=== PATIENT | female | born 2000 | race African-American/Black ===

== ENCOUNTER 2022-01-30 00:44 | Inpatient (IN) | payer SELFPAY ==
[~2022-01-30] VITALS: Ht 154.9 cm; Wt 57.6 kg
[2022-01-31] VITALS (63 sets, daily range): BP systolic 91–125; BP diastolic 52–78
[2022-01-31 02:56] LABS: HEMATOCRIT 35.6 % (36.0-47.0); HEMOGLOBIN 12.4 g/dl (12.0-15.5); MEAN CORPUSCULAR HEMOGLOBIN 30.2 pg (27.0-33.0); MEAN CORPUSCULAR HGB CONC 34.8 g/dl (32.0-36.5); MEAN CORPUSCULAR VOLUME 86.8 fl (80.0-96.0); PLATELET COUNT, AUTOMATED 137 10^3/uL (150-450); WHITE BLOOD COUNT 11.9 10^3/uL (4.0-10.0)
[2022-01-31 03:17] LABS: GC DNA AMPLIFICATION NEGATIVE (NEGATIVE)
[2022-01-31 04:25] LABS: HEPATITIS B SURFACE ANTIGEN NEGATIVE (NEGATIVE)
[2022-01-31] MEDS ORDERED: ePHEDrine SULFATE 25 MG/5 ML(5MG/ML) SYRINGE IVP PRN (04:55)
[2022-01-31] MEDS ORDERED: LR 500 ML IV PRN (04:55)
[2022-01-31] MEDS ORDERED: EPIDURAL/PCA KEYS XX PRN (04:55)
[2022-01-31] MEDS: FENTANYL/ROPIVACAINE/NACL BAG 100 ML EPIDURAL SCH ×2 (04:55→11:12)
[2022-01-31] MEDS ORDERED: ONDANSETRON 4MG 2ML VIAL IV PRN ×3 (04:55→23:20)
[2022-01-31] MEDS ORDERED: NALOXONE INJ 0.4MG/1ML VIAL (J2310 PER 1MG) IV PRN ×3 (04:55→23:20)
[2022-01-31] MEDS ORDERED: diphenhydrAMINE 50MG/ML VIAL (J1200) IV PRN ×2 (04:55→23:20)
[2022-01-31] MEDS ORDERED: FENTANYL 2MCG/ML ROPIVACAINE 0.2% IN 0.9% NACL 100ML IVBAG As Ordered ONE (04:56)
[2022-01-31] MEDS: LR 1,000 ML IV SCH ×5 (05:18→16:32)
[2022-01-31] MEDS ORDERED: OXYTOCIN DRIP 30 UNITS in IV 1 EA IV SCH (05:40)
[2022-01-31] MEDS: PENICILLIN G POTASSIUM IV 2.5 MU in IV 1 EA IV SCH ×4 (05:49→19:29)
[2022-01-31] MEDS ORDERED: BUTORPHANOL 2 MG/ML INJ (J0595) IV ONE (07:50)
[2022-01-31] MEDS ORDERED: PROMETHAZINE 25MG/ML 1ML VIAL IV ONE (07:50)
[2022-01-31] MEDS ORDERED: BETAMETHASONE SOLUSPAN 6MG/ML 5ML VIAL (J0702 PER 3MG) IM ONE (10:30)
[2022-01-31] MEDS ORDERED: PRENTAB9 PO (16:00)
[2022-01-31] MEDS ORDERED: LACTATED RINGER'S 1000 ML IV STA (20:12)
[2022-01-31] MEDS ORDERED: BICITRA 30ML SOLN UDC PO ONE (20:15)
[2022-01-31] MEDS ORDERED: TRANEXAMIC ACID INJection 1,000 MG in NS 100 ML IV PRN (20:15)
[2022-01-31] MEDS ORDERED: ceFAZolin 2 GM/D5W 50 ML IV BAG (J0690 PER 500MG) As Ordered ONE (20:15)
[2022-01-31] MEDS ORDERED: OXYTOCIN DRIP 30 UNITS in IV 1 EA IV PRN ×4 (20:15)
[2022-01-31] MEDS ORDERED: CARBOPROST TROMETHAMINE 250 MCG/ML AMP IM PRN (20:15)
[2022-01-31] MEDS ORDERED: ceFAZolin SOD 2 GM in IV 1 EA IV ONE (20:15)
[2022-01-31] MEDS ORDERED: METHYLERGONOVINE MALEATE 0.2 MG/ML VIAL (J2210) IM PRN (20:15)
[2022-01-31] MEDS ORDERED: AZITHROMYCIN INJ 500 MG, VIAL MATE ADAPTER 1 EACH in NS 250 ML IV ONE (20:15)
[2022-01-31] MEDS ORDERED: AZITHROMYCIN INJ 500MG VIAL As Ordered ONE (20:16)
[2022-01-31] MEDS ORDERED: MORPHINE PRES-FREE INJ 10 MG/10 ML VIAL As Ordered ONE (20:17)
[2022-01-31] MEDS ORDERED: ONDANSETRON 4MG 2ML VIAL As Ordered ONE (20:21)
[2022-01-31] MEDS ORDERED: dexameTHASONE 4 MG/ML 1ML VIAL (J1100 PER 1MG) As Ordered ONE (20:21)
[2022-01-31] MEDS ORDERED: LIDOCAINE 2% W/EPINEPHRINE 20ML VIAL **PRES FREE As Ordered ONE (20:21)
[2022-01-31] MEDS ORDERED: OXYTOCIN INJ 10 UNITS/ML VIAL (J2590) As Ordered ONE (20:22)
[2022-01-31] MEDS ORDERED: OXYTOCIN 30 UNITS IN 0.9% NaCl 500ML IV BAG (J2590) As Ordered ONE (20:22)
[2022-01-31] MEDS ORDERED: LIDOCAINE 1% MDV 50ML VIAL As Ordered ONE (20:56)
[2022-01-31] MEDS ORDERED: MIDAZOLAM INJ 2MG/2ML VIAL (J2250 PER 1MG) As Ordered ONE (20:59)
[2022-01-31] MEDS ORDERED: KETOROLAC 60MG 2ML VIAL As Ordered ONE (21:20)
[2022-01-31] MEDS ORDERED: PHENYLephrine 500MCG 5ML (100MCG/ML) SYRINGE As Ordered ONE (21:24)
[2022-01-31] MEDS ORDERED: LIDOCAINE 1% MDV 50ML VIAL SC ONE (21:30)
[2022-01-31] MEDS ORDERED: RHOGAM 300 MCG (1500 IU) INJ (J2790) IM SCH (21:50)
[2022-01-31] MEDS: ACETAMINOPHEN 500 MG TAB PO SCH (21:50)
[2022-01-31] MEDS ORDERED: oxyCODONE 5MG TAB PO PRN ×3 (21:50→23:20)
[2022-01-31] MEDS ORDERED: MOM 30ML SUSPENSION UDC PO PRN (21:50)
[2022-01-31] MEDS ORDERED: SIMETHICONE 80MG CHEW TAB PO PRN (21:50)
[2022-01-31] MEDS: SLF 3 ML SYR IV SCH (23:20)
[2022-01-31] MEDS ORDERED: **NOTE PATIENT COMMENT** MISC XX SCH (23:20)
[2022-01-31] MEDS ORDERED: fentaNYL 100 MCG/2 ML INJECTION IV PRN (23:20)
[2022-01-31] MEDS ORDERED: METOCLOPRAMIDE INJ 10MG/2ML VIAL (J2765 PER 1) IV PRN ×2 (23:20)
[2022-01-31] MEDS ORDERED: LR 1,000 ML IV SCH (23:20)
[2022-02-01] VITALS (9 sets, daily range): BP systolic 98–127; BP diastolic 55–79
[2022-02-01] MEDS: ACETAMINOPHEN 500 MG TAB PO SCH ×4 (03:57→21:43)
[2022-02-01] MEDS: KETOROLAC 30 MG/ML 1ML VIAL IV SCH ×3 (03:57→15:47)
[2022-02-01] MEDS: PRENATAL VITAMINS CHEWABLE TABLET PO SCH (08:20)
[2022-02-01] MEDS: DOCUSATE SODIUM 100MG CAPSULE PO SCH ×2 (08:20→21:41)
[2022-02-01] MEDS: SLF 3 ML SYR IV SCH ×2 (08:20→15:48)
[2022-02-01] MEDS ORDERED: COLA100C5 PO (09:16)
[2022-02-01] MEDS ORDERED: OXYC-517 PO (09:16)
[2022-02-01] MEDS ORDERED: ACET-683 PO (09:16)
[2022-02-01] MEDS ORDERED: IBUP-1022 PO (09:16)
[2022-02-01 09:40] LABS: HEMATOCRIT 30.6 % (36.0-47.0); MEAN CORPUSCULAR HEMOGLOBIN 30.4 pg (27.0-33.0); MEAN CORPUSCULAR VOLUME 89.5 fl (80.0-96.0); PLATELET COUNT, AUTOMATED 150 10^3/uL (150-450); RED BLOOD COUNT 3.42 10^6/uL (4.00-5.40); WHITE BLOOD COUNT 13.2 10^3/uL (4.0-10.0)
[2022-02-01 09:43] LABS: HEMOGLOBIN 10.4 g/dl (12.0-15.5)
[2022-02-02] MEDS: IBUPROFEN 600MG TAB PO SCH ×4 (01:02→17:38)
[2022-02-02 02:00] VITALS: BP 107/70
[2022-02-02] MEDS: ACETAMINOPHEN 500 MG TAB PO SCH ×4 (03:50→21:10)
[2022-02-02 06:00] VITALS: BP 100/59
[2022-02-02] MEDS: DOCUSATE SODIUM 100MG CAPSULE PO SCH ×2 (08:09→21:10)
[2022-02-02] MEDS: PRENATAL VITAMINS CHEWABLE TABLET PO SCH (08:09)
[2022-02-02] MEDS ORDERED: MEASLES,MUMPS,RUBELLA VACCINE INJ (MMR-II) (90707) SC.IMMUN ONE (09:00)
[2022-02-02 10:00] VITALS: BP 109/60
[2022-02-02 14:00] VITALS: BP_SYST 108; BP_SYST 111; BP_DIAS 61; BP_DIAS 67
[2022-02-02 18:00] VITALS: BP 121/79
[2022-02-03] MEDS: IBUPROFEN 600MG TAB PO SCH ×2 (00:28→06:09)
[2022-02-03] MEDS: ACETAMINOPHEN 500 MG TAB PO SCH ×2 (04:32→09:57)
[2022-02-03 06:00] VITALS: BP 111/65
[2022-02-03] MEDS: DOCUSATE SODIUM 100MG CAPSULE PO SCH (07:42)
[2022-02-03] MEDS: PRENATAL VITAMINS CHEWABLE TABLET PO SCH (07:42)
== END 2022-02-03 12:09 | disposition home or self-care (01) | DRG 540 ==
LOC: M LDO 00:44 → M LDI 01-31 00:47 → M OBS 01-31 23:30
PROVIDERS: ADMIT Specialist; ATTEND Obstetrics & Gynecology
PROC: 3E033VJ Introduction of Other Hormone into Peripheral Vein, Percutaneous Approach (ICD-10-PCS; 2022-01-31)
PROC: 10D00Z1 Extraction of Products of Conception, Low, Open Approach (ICD-10-PCS; principal; 2022-01-31 20:30)
DX: O42.013 Preterm premature rupture of membranes, onset of labor within 24 hours of rupture, third trimester (principal); Z3A.36 36 weeks gestation of pregnancy; O76 Abnormality in fetal heart rate and rhythm complicating labor and delivery; O61.0 Failed medical induction of labor; Z37.0 Single live birth